=== PATIENT | male | born 1990 | race Hispanic/Latino ===

== ENCOUNTER 2019-02-26 13:44 | Emergency (ER) | payer OTHER ==
[2019-02-26] MEDS ORDERED: OCTYL 2-CYANOACRYLATE 1 EACH TP ONE (14:49)
== END 2019-02-26 16:27 | disposition home or self-care (01) ==
LOC: EDH 13:44
DX: S61.411A Laceration without foreign body of right hand, initial encounter (principal); Z90.49 Acquired absence of other specified parts of digestive tract; W25.XXXA Contact with sharp glass, initial encounter; Y93.89 Activity, other specified; Y92.89 Other specified places as the place of occurrence of the external cause; Y99.8 Other external cause status
CPT/HCPCS: 12001; 73130